=== PATIENT | male | born 1945 | race Caucasian/White ===

== ENCOUNTER 2017-07-19 18:24 | Emergency (ER) | payer MEDICARE, OTHER ==
[~2017-07-19] VITALS: Ht 180.3 cm; Wt 77.1 kg
--- NOTE | 2017-07-19 18:50 | Emergency Room Report ---
History of Present Illness Time Seen by MD Sierra Presenting Problem in Triage Pt arrived:Wheelchair Presenting Problem:FELL ALST PM. C/O LEFT RIBS, BACK AND RT SHOULDER PAIN Onset of symptoms date/time:07/18/17/ or onset unknown for:MEDICAL HX UNKNOWN Treatment Prior to Arrival: MARRIAGE PERFORMER Provided by: Sepsis Risk Assessment: Temp: 97.5 B/P: 127/71 MAP: 89 Pulse: 71 Resp: 18 Recent fever? N Clinical Suspician of Infection? N Mental Status: 1 - Regular (Normal Baseline) Sepsis Risk:Low Sepsis Risk Have you (or family members/close friends) recently traveled outside the [place]? N If Yes, where/when: Have you had exposure to infectious disease within the past month? N TB? Other? Specify: tripped and fell at home last night with neg LOC. C/o intense left rib pain and spasms that are intense, not relieved with an OTC pain patch. No SOB. Has R shoulder pain w/o any weakness, numbness, or tingling noted. Is ambulatory. ALLERGIES Coded Allergies: No Known Allergies (07/19/17) Home Medications Reported Medications No Known Home Medications History Medical History General CAD? No Angina: No NC: No Hypertension? No Hyperlipidemia? No CHF? No DVT? No PE? No COPD? No Asthma? No Anemia? No GERD? No Gastric ulcers? No GI Bleed? No Hernia? No Thyroid Problems? No Hypothyroidism? No CVA? No Seizures? No Renal Insuffiency? No End Stage Renal Disease? No UTI? No Stones? No BPH? No GB Disease: No Nephritic Syndrome? No Asplenia? No Hepatitis? No Sickle Cell Disease? No Arthritis? No Migraines? No Cataracts? No Glaucoma? No MRSA? No HIV? No TB? No Anxiety? No Depression? No Cancer? No Immunization Hx Ped.Immunizations UTD Yes DT/Tetanus Unknown Surgical Hx Previous Surgery?N Social History Smoking Hx Smoker: Never Smoker Tobacco: No Are you/the child exposed to second-hand smoke: No Alcohol Alcohol: No Review of Systems All Other Systems Reviewed and Negative Musculoskeletal see HPI Physical Exam Vital Signs Vital Signs Date Time Temp Pulse Resp B/P Pulse O2 O2 Flow FiO2 Ox Delivery Rate 07/19 1904 18 07/19 1832 97.5 71 18 127/71 100 General Appearance normal appearance, WD/WN, mild distress (in pain) Eye Exam - bilateral eye normal exam, bilateral eye PERRL, bilateral eye EOMI Neck normal inspection, non-tender, supple, full range of motion Respiratory Status Yes: trachea midline, chest symmetrical, tender on palpation. No: respiratory distress (no def no subcutaneous air), non tender chest, use of accessory muscles, pain on inspiration, pain on expiration, productive cough, non productive cough. Lung Sounds bilateral: normal breath sounds, lungs clear. Cardiovascular normal exam, regular rate/rhythm, no peripheral edema, no gallop, no JVD, no murmur, no rub, normal peripheral pulses Peripheral Pulses Pulses normal Yes Gastrointestinal normal bowel sounds, normal exam, non tender, soft, no organomegaly, no pulsatile mass, no guarding, no rebound Back normal inspection, no vertebral tenderness, bowel/bladder continent, gait normal, strt leg raising(L)-NML, strt leg raising(R)-NML Extremities normal range of motion, normal inspection, normal capillary refill, pain over right shoulder w/o crepitus, deformities, or stepoffs noted. Strength 5 Upper Ext (L), 5 Upper Ext (R), 5 Lower Ext (L), 5 Lower Ext (R) Neurologic alert, normal exam, no motor/sensory deficits, oriented x 3 Glascow Coma Scale Glascow Coma Scale Response Value EYE response: 4 Spontaneously 4 MOTOR response: 6 OBEYS 6 VERBAL response: 5 Oriented & Converses 5 Total 15 Skin intact, normal color, warm/dry Medical Decision Making LABS/Meds/Orders Pt receiving controlled substance in ED? Yes Lonnie was queried for this patient? Yes Reference #: [id number] Risks/benefits of using a controlled substance for treatment were discussed w/pt by me Results/Orders Current Medication Orders Sig/Mis Start time Last Medication Dose Route Stop Time Status Admin Morphine Sulfate 0 .STK-MED ONE 07/19 1901 DC .ROUTE Ondansetron HCl 0 .STK-MED ONE 07/19 1901 DC .ROUTE Ondansetron HCl 4 MG ONCE ONE 07/19 1900 DC 07/19 IM 07/19 Morphine Sulfate 4 MG ONCE ONE 07/19 1845 DC 07/19 IM 07/19 Orders Procedure Date/time Status [id number] VIEWS 12/05 1840 Active [id number] VIEWS 07/19 1839 Active XRAY/CT/US XRAY/CT/US XRAY chest, rib Xray Results abnormal, rib fracture 10, 11 Progress ED Progress Notes Date 07/19/17 Time 1933 Comment Incentive spirometer per RT Departure Departure Time of Disposition 1933 Disposition DC Home or Self Care(routine) Clinical Impression Primary Impression: Ribs, multiple fractures Qualifiers: Encounter type: initial encounter Fracture type: closed Laterality: left Qualified Code: S22.42XA - Multiple fractures of ribs, left side, initial encounter for closed fracture Condition STABLE Referrals Jim MOSER,Derrick (Family) Patient Instructions Rib Fracture Additional Instructions use incentive spirometry frequently while awake; see Dr. Fernandez for recheck in one day; take the Percocet as rx'd and use an over the counter stool softener such as Metamucil to avoid constipation from Percocet Discharge Counseling Counseled pt/family regarding diagnosis, test results, R/B of controlled subst., medications/RX, home care, follow up needs Prescriptions Current Visit Scripts OXYCODONE HCL/ACETAMINOPHEN (Percocet 7.5-325 MG Tablet) 1 TAB PO Q4HP PRN rib fractures #18 TAB ED Critical Care Critical Care No at 1938
--- OUTSIDE RECORDS SUMMARY | 2017-07-19 19:14 | External Medical Summary Rpt | CCD ---
Author Author , TERESA Organization TERESA Address Unknown Phone [email or web address] Immunization Name Date Rout CVX Reac Dose Comm Prov Is Faci e tion ent ider Refu lity Give sed n Infl 10-0 Intr 0.5 Hist KHAF No RITE uenz 4-20 amus mL oric TAMIKO AID0 a 17 cula al AYMA 3938 Tri, r Info N Adj rmat ion - Sour ce Unsp ecif ied
--- OUTSIDE RECORDS SUMMARY | 2017-07-19 19:14 | External Medical Summary Rpt | CCD ---
Author Author [place] Address Unknown Phone [email or web address] Purpose Continuity of Care Document - through 2016
--- OUTSIDE RECORDS SUMMARY | 2017-07-19 19:14 | External Medical Summary Rpt | CCD ---
Author Author [place] Address Unknown Phone [email or web address] Purpose Continuity of Care Document - through 2016
--- OUTSIDE RECORDS SUMMARY | 2017-07-19 19:14 | External Medical Summary Rpt | CCD ---
Author Author [employer] Organization [employer] Address Unknown Phone Unavailable Purpose Continuity of Care Document - through 2016
--- OUTSIDE RECORDS SUMMARY | 2017-07-19 19:14 | External Medical Summary Rpt | CCD ---
Author Author , TERESA Organization TERES[employer] Address Unknown Phone [email or web address] Immunization Name Date Rout CVX Reac Dose Comm Prov Is Faci e tion ent ider Refu lity Give sed n Infl 10-0 Intr 0.5 Hist KHAF No RITE uenz 4-20 amus mL oric TAMIKO AID0 a 17 cula al AYMA 3938 Tri, r Info N Adj rmat ion - Sour ce Unsp ecif ied
[2017-07-19] MEDS ORDERED: PERCOCET 325 MG1 TA4 PO (19:37)
[2017-07-19 19:54] VITALS: BP 137/68
--- NOTE | 2017-07-19 21:58 | RADIOLOGY REPORT PS360 ---
[id number] VIEWS HISTORY: Post traumatic pain fell ORDERING PHYSICIAN: Erika Conroy MD PATIENT AGE: 71 years COMPARISON: None FINDINGS: No fracture or dislocation. No lytic or blastic change. There is normal mineralization. 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 IMPRESSION: No acute finding. Mild degenerative change
--- NOTE | 2017-07-19 22:00 | RADIOLOGY REPORT PS360 ---
[id number] VIEWS HISTORY: fell ORDERING PHYSICIAN: Erika Conroy MD PATIENT AGE: 71 years COMPARISON: None FINDINGS: A frontal view of the chest shows no acute finding. Multiple views of the Left ribs were obtained. There is a nondisplaced fracture involving the posterior lateral aspect of the left ninth rib. IMPRESSION: Nondisplaced left ninth rib
== END 2017-07-19 19:55 | disposition home or self-care (01) ==
LOC: ER 18:24
DX: S22.42XA Multiple fractures of ribs, left side, initial encounter for closed fracture (principal); W01.0XXA Fall on same level from slipping, tripping and stumbling without subsequent striking against object, initial encounter; Y92.019 Unspecified place in single-family (private) house as the place of occurrence of the external cause
CPT/HCPCS: J2405